=== PATIENT | female | born 1980 | race Caucasian/White ===

== ENCOUNTER 2018-06-08 18:01 | Inpatient (IN) | payer OTHER, MEDICAID ==
[~2018-06-08] VITALS: Ht 165.1 cm; Wt 46.7 kg
[2018-06-08] MEDS ORDERED: ZIPRASIDONE 20 MG INJ IM ONE ×2 (18:19→18:30)
[2018-06-08 18:28] LABS: BASOPHILS # (AUTO) 0.03 x10^3/uL (0-0.1); BASOPHILS % (AUTO) 0 % (0-1); EOSINOPHILS % (AUTO) 0 % (1-7); LYMPHOCYTES # (AUTO) 1.76 x10^3/uL (1-3.4); LYMPHOCYTES % (AUTO) 18 % (22-44); MD NO; MEAN CORPUSCULAR HEMOGLOBIN 29.7 pg (27.0-34.8); MEAN CORPUSCULAR VOLUME 87.5 fL (80-100); MEAN PLATELET VOLUME 13.4 fL (7.4-10.4); MONOCYTES # (AUTO) 0.69 x10^3/uL (0.2-0.8); MONOCYTES % (AUTO) 7 % (2-9); NEUTROPHILS # (AUTO) 7.13 x10^3/uL (1.8-6.8); NEUTROPHILS % (AUTO) 74 % (42-75); PLATELET COUNT 194 x10^3/uL (130-400); RED BLOOD COUNT 5.56 x10^6/uL (3.82-5.3); RED CELL DISTRIBUTION WIDTH 12.7 % (9.6-15.2)
[2018-06-08] MEDS ORDERED: SODIUM CHLORIDE 0.9% 1,000ML IVBOLUS ONE (18:30)
[2018-06-08] MEDS ORDERED: PLEASE ENTER ALLERGIES MC SCH (18:30)
[2018-06-08 18:45] LABS: ALBUMIN 4.4 g/dL (3.4-5.0); ANION GAP 15 mmol/L (5-15); CALCIUM 9.9 mg/dL (8.5-10.1); CHLORIDE 118 mmol/L (98-107)
[2018-06-08 18:47] LABS: SALICYLATE LEVEL < 1.7 mg/dL (2.8-20.0)
[2018-06-08 18:49] LABS: ALANINE AMINOTRANSFERASE 58 U/L (12-78); ALKALINE PHOSPHATASE 93 U/L (45-117); BILIRUBIN,TOTAL 1.2 mg/dL (0.2-1.0); CREATININE 1.22 mg/dL (0.55-1.02); TOTAL PROTEIN 7.5 g/dL (6.4-8.2)
[2018-06-08 18:51] LABS: ACETAMINOPHEN < 2 mcg/mL (10-30)
[2018-06-08 18:54] LABS: FREE T4 (FREE THYROXINE) 1.13 ng/dL (0.76-1.46); THYROID STIMULATING HORMONE 0.837 mIU/L (0.358-3.740)
[2018-06-08] MEDS ORDERED: BISACODYL 10 MG SUPP PR PRN (20:30)
[2018-06-08] MEDS ORDERED: ONDANSETRON ODT 4 MG PO PRN (20:30)
[2018-06-08] MEDS: HEPARIN 5,000 UNITS/ML, 1ML SQ SCH (20:30)
[2018-06-08] MEDS ORDERED: POLYETHYLENE GLYCOL 17 GM PACKET PO PRN (20:30)
[2018-06-08] MEDS ORDERED: ACETAMINOPHEN 325 MG TABLET PO PRN (20:30)
[2018-06-08] MEDS: SODIUM CHLORIDE 0.9% 1,000 ML IV SCH (22:13)
[2018-06-08 22:24] VITALS: BP 107/67
[2018-06-09 00:23] VITALS: BP 107/68
[2018-06-09 03:14] LABS: CULTURE INDICATED? YES; MICROSCOPIC INDICATED
[2018-06-09] MEDS: HEPARIN 5,000 UNITS/ML, 1ML SQ SCH ×3 (05:18→21:17)
[2018-06-09 06:29] LABS: BASOPHILS # (AUTO) 0.05 x10^3/uL (0-0.1); BASOPHILS % (AUTO) 1 % (0-1); EOSINOPHILS # (AUTO) 0.04 x10^3/uL (0-0.4); EOSINOPHILS % (AUTO) 1 % (1-7); LYMPHOCYTES # (AUTO) 2.22 x10^3/uL (1-3.4); LYMPHOCYTES % (AUTO) 28 % (22-44); MD NO; MEAN CORPUSCULAR HEMOGLOBIN 29.5 pg (27.0-34.8); MEAN CORPUSCULAR HGB CONC 33.4 g/dL (32.4-35.8); MEAN CORPUSCULAR VOLUME 88.3 fL (80-100); MEAN PLATELET VOLUME 13.3 fL (7.4-10.4); MONOCYTES # (AUTO) 0.64 x10^3/uL (0.2-0.8); MONOCYTES % (AUTO) 8 % (2-9); NEUTROPHILS # (AUTO) 5.09 x10^3/uL (1.8-6.8); NEUTROPHILS % (AUTO) 63 % (42-75); PLATELET COUNT 159 x10^3/uL (130-400); RED BLOOD COUNT 4.58 x10^6/uL (3.82-5.3); RED CELL DISTRIBUTION WIDTH 13.3 % (9.6-15.2)
[2018-06-09 06:34] LABS: ALANINE AMINOTRANSFERASE 50 U/L (12-78); ALBUMIN 3.5 g/dL (3.4-5.0); ANION GAP 7 mmol/L (5-15); CALCIUM 8.5 mg/dL (8.5-10.1); CHLORIDE 121 mmol/L (98-107); CREATININE 0.81 mg/dL (0.55-1.02)
[2018-06-09 06:36] LABS: ALKALINE PHOSPHATASE 74 U/L (45-117); TOTAL PROTEIN 5.9 g/dL (6.4-8.2)
[2018-06-09 08:36] VITALS: BP 144/70
[2018-06-09] MEDS: SODIUM CHLORIDE 0.9% 1,000 ML IV SCH (09:00)
[2018-06-09] MEDS: SENNA/DOCUSATE TABLET PO SCH (09:00)
[2018-06-09] MEDS: POTASSIUM CHLORIDE 20 MEQ in SODIUM CHLORIDE 0.45% 1,000 ML IV SCH (10:05)
[2018-06-09 14:44] VITALS: BP 123/75
[2018-06-09] MEDS: LORazepam 2 MG/ML, 1ML IVPush PRN (16:22)
[2018-06-09] MEDS ORDERED: ZIPRASIDONE 20MG CAPSULE PO PRN (16:30)
[2018-06-09] MEDS ORDERED: RISPERIDONE 0.5 MG TABLET ONE (20:50)
[2018-06-09] MEDS: RISPERIDONE 1 MG TABLET PO SCH (21:18)
[2018-06-09 21:35] VITALS: BP 110/72
[2018-06-10] MEDS: POTASSIUM CHLORIDE 20 MEQ in SODIUM CHLORIDE 0.45% 1,000 ML IV SCH (00:10)
[2018-06-10 01:58] VITALS: BP 120/75
[2018-06-10] MEDS: HEPARIN 5,000 UNITS/ML, 1ML SQ SCH ×4 (03:09→21:24)
[2018-06-10] MEDS: LORazepam 2 MG/ML, 1ML IVPush PRN (03:51)
[2018-06-10 08:19] VITALS: BP 118/85
[2018-06-10 08:29] LABS: ALANINE AMINOTRANSFERASE 65 U/L (12-78); ALBUMIN 3.1 g/dL (3.4-5.0); ANION GAP 7 mmol/L (5-15); CALCIUM 8.5 mg/dL (8.5-10.1); CHLORIDE 112 mmol/L (98-107); CREATININE 0.59 mg/dL (0.55-1.02)
[2018-06-10 08:32] LABS: ALKALINE PHOSPHATASE 95 U/L (45-117); BILIRUBIN,TOTAL 0.4 mg/dL (0.2-1.0); TOTAL PROTEIN 5.2 g/dL (6.4-8.2)
[2018-06-10] MEDS: SENNA/DOCUSATE TABLET PO SCH (09:00)
[2018-06-10] MEDS ORDERED: POTASSIUM CHLORIDE 20 MEQ TAB.ER.PRT PO ONE (09:30)
[2018-06-10] MEDS ORDERED: RISPERIDONE 0.5 MG TABLET ONE ×3 (09:39→21:17)
[2018-06-10] MEDS: RISPERIDONE 1 MG TABLET PO SCH ×2 (11:46→21:00)
[2018-06-10 13:18] VITALS: BP 110/75
[2018-06-10] MEDS ORDERED: ZIPRASIDONE 20 MG INJ IM ONE (20:00)
[2018-06-10 22:17] VITALS: BP 118/84
[2018-06-11 03:11] VITALS: BP 106/62
[2018-06-11] MEDS: HEPARIN 5,000 UNITS/ML, 1ML SQ SCH (04:30)
[2018-06-11 06:04] LABS: ANION GAP 6 mmol/L (5-15); CALCIUM 8.6 mg/dL (8.5-10.1); CHLORIDE 112 mmol/L (98-107)
[2018-06-11 06:07] LABS: CREATININE 0.62 mg/dL (0.55-1.02)
[2018-06-11] MEDS ORDERED: RISP1TAB45 PO (06:32)
[2018-06-11 06:50] VITALS: BP 125/72
[2018-06-11] MEDS ORDERED: RISPERIDONE 0.5 MG TABLET ONE (08:43)
[2018-06-11] MEDS: RISPERIDONE 1 MG TABLET PO SCH (08:49)
[2018-06-11] MEDS: SENNA/DOCUSATE TABLET PO SCH (09:00)
[2018-06-11] MEDS ORDERED: POTASSIUM CHLORIDE 20 MEQ TAB.ER.PRT PO SCH (17:00)
== END 2018-06-11 10:08 | disposition home or self-care (01) | DRG 683 ==
LOC: ED 18:35 → EDIP 19:18 → 4NOR 20:25
PROVIDERS: ADMIT Internal Medicine; ATTEND Internal Medicine
DX: N17.9 Acute kidney failure, unspecified (principal); E44.0 Moderate protein-calorie malnutrition; E87.0 Hyperosmolality and hypernatremia; R17 Unspecified jaundice; Z68.1 Body mass index [BMI] 19.9 or less, adult; D75.1 Secondary polycythemia; E86.0 Dehydration; R62.7 Adult failure to thrive; E87.6 Hypokalemia; F20.9 Schizophrenia, unspecified; Z78.1 Physical restraint status
CPT/HCPCS: 36415; 71045; 80048; 80053; 80307; 80329; 81001; 82140; 82962; 84295; 84439; 84443; 84703; 85025; 87086; 93005; G0378; J1644; J3480; J3486; G0480; J2060; J7030

== ENCOUNTER 2019-03-11 14:51 | Inpatient (IN) | payer MEDICAID, OTHER ==
[~2019-03-11] VITALS: Ht 167.6 cm; Wt 44.4 kg
[~2019-03-11 14:51] MED LIST: RISP1TAB45 PO
--- NOTE | 2019-03-11 15:10 | NUR ---
MD JEREZ IN ROOM FOR EVAL. [facility] OFFICERS SPOKE WITH [facility] MEDICAL STAFF AND MD JEREZ. APPARENTLY THE PATIENT HAS A HISTORY OF ARRESTS AND MENTAL ILLNESS. [facility] REPORTS THAT SHE NORMALLY TAKES ZYPREXA BUT HAS NOT BEEN MEDICATED WHILE AT [facility]. PATIENT HAS BEEN IN [facility] BEFORE BUT HAS NOT PREVIOUSLY REFUSED TO EAT AND DRINK. TODAY, WHEN ASKED BY MD WHY PATIENT IS NOT EATING AND DRINKING SHE SAYS "I AM EATING AND DRINKING". SHE IS ALSO AKING ABOUT A BAG OF BELONGINGS. THE OFFICERS HAVE BEEN REASSURING HER THAT SHE WILL GET HER BELONGINGS BACK AFTER SHE IS DISCHARGED FROM [facility]. PATIENT REFUSES ORAL AND AXIALLARY TEMP AT THIS TIME
[2019-03-11] MEDS ORDERED: HALOPERIDOL 5 MG/ML ONE (15:18)
[2019-03-11] MEDS ORDERED: HALOPERIDOL 5 MG/ML IM ONE (15:30)
--- NOTE | 2019-03-11 15:30 | NUR ---
[facility] MEDICATED. NOT COOPERATIVE BUT NOT COMBATIVE. IM MEDICATION ADMINISTERED WITH HELP OF CUSTODIAL OFFICERS. PATIENT ASKED, "WHY ARE YOU GIVING ME POSION?"
--- NOTE | 2019-03-11 16:08 | NUR ---
PT SLEEPING ON GURNEY AT THIS TIME. VSS. NADN. [place] AT BEDSIDE.
[2019-03-11 16:33] LABS: ALBUMIN 4.4 g/dL (3.4-5.0); ANION GAP 9 mmol/L (5-15); CALCIUM 9.3 mg/dL (8.5-10.1); CHLORIDE 113 mmol/L (98-107)
[2019-03-11 16:39] LABS: ALANINE AMINOTRANSFERASE 94 U/L (12-78); ALKALINE PHOSPHATASE 74 U/L (45-117); BILIRUBIN,TOTAL 1.6 mg/dL (0.2-1.0); CREATININE 1.28 mg/dL (0.55-1.02); TOTAL PROTEIN 7.1 g/dL (6.4-8.2)
--- NOTE | 2019-03-11 16:45 | NUR ---
PT MINI-CATH'D AT THIS TIME. PT STATING "NO, NO" THROUGHOUT PROCEDURE. HOWEVER, PT TOLERATED AND WAS ABLE TO COOPERATE WITH TAKING AN ORAL TEMPERATURE WELL. RAJESH. GUARDS BACK AT BEDSIDE. PT RESTING ON [facility].
[2019-03-11] MEDS ORDERED: SODIUM CHLORIDE 0.9% 1,000ML IVBOLUS ONE (17:00)
[2019-03-11 17:10] LABS: MICROSCOPIC NOT IND
[2019-03-11] MEDS ORDERED: NS + 20MEQ KCL 1,000 ML IV SCH (17:14)
[2019-03-11 17:17] LABS: CULTURE INDICATED? NO
[2019-03-11 17:21] LABS: MD YES; MEAN CORPUSCULAR HEMOGLOBIN 30.6 pg (27.0-34.8); MEAN CORPUSCULAR HGB CONC 32.6 g/dL (32.4-35.8); MEAN CORPUSCULAR VOLUME 93.8 fL (80-100); MEAN PLATELET VOLUME 11.6 fL (7.4-10.4); PLATELET COUNT 155 x10^3/uL (130-400); RED BLOOD COUNT 4.53 x10^6/uL (3.82-5.3); RED CELL DISTRIBUTION WIDTH 14.3 % (9.6-15.2)
[2019-03-11 17:23] LABS: LYMPHS% (MANUAL) 26 % (22-44); MONOS#(MANUAL) 0.52 x10^3/uL (0.3-2.7); MONOS% (MANUAL) 5 % (2-9); REACTIVE LYMPHS % (MANUAL) 1 % (0-0); SEG#(MANUAL) 7.07 x10^3/uL (1.8-6.8); SEGS% (MANUAL) 68 % (42-75)
[2019-03-11 17:24] LABS: <RBC MORPHOLOGY> NORMAL
[2019-03-11 17:25] LABS: <PLATELET ESTIMATE> ADEQUATE; LARGE PLATELETS 1+
[2019-03-11] MEDS ORDERED: hydrALAzine 20 MG/ML, 1ML IVPush PRN (17:30)
[2019-03-11] MEDS ORDERED: ONDANSETRON 2MG/ML, 2ML IVPush PRN (17:30)
--- NOTE | 2019-03-11 17:32 | NUR ---
PIV STARTED AT THIS TIME. PT RESTING IN BED. SHOUTING "NO, DON'T DO THAT. GIVE ME THE RESPIRADOL AND JUICY JUICE." GUARDS AT BEDSIDE.
--- NOTE | 2019-03-11 17:47 | NUR ---
REPORT GIVEN TO OLIVIA PIMENTEL ON MEDICAL.
[2019-03-11 19:24] LABS: ANION GAP 8 mmol/L (5-15); CALCIUM 8.3 mg/dL (8.5-10.1); CHLORIDE 118 mmol/L (98-107); CREATININE 1.01 mg/dL (0.55-1.02)
[2019-03-11 19:30] VITALS: BP 164/115
[2019-03-11 20:40] VITALS: BP 116/75
[2019-03-11 21:14] LABS: AMPHETAMINE SCREEN, URINE Negative (Negative); BARBITURATE SCREEN, URINE Negative (Negative); BENZODIAZEPINE SCREEN, URINE Negative (Negative); CANNABINOID SCREEN, URINE Negative (Negative); COCAINE SCREEN, URINE Negative (Negative); METHADONE SCREEN, URINE Negative (Negative); OPIATE SCREEN, URINE Negative (Negative)
[2019-03-11] MEDS: HALOPERIDOL 5 MG/ML IV PRN (22:36)
[2019-03-11 23:14] VITALS: BP 108/68
[2019-03-11 23:40] LABS: ANION GAP 8 mmol/L (5-15); CALCIUM 8.5 mg/dL (8.5-10.1); CHLORIDE 119 mmol/L (98-107); CREATININE 0.92 mg/dL (0.55-1.02)
[2019-03-12 02:46] VITALS: BP 115/76
[2019-03-12 03:02] LABS: BASOPHILS # (AUTO) 0.07 x10^3/uL (0-0.1); BASOPHILS % (AUTO) 1 % (0-1); EOSINOPHILS # (AUTO) 0.03 x10^3/uL (0-0.4); EOSINOPHILS % (AUTO) 0 % (1-7); LYMPHOCYTES # (AUTO) 1.46 x10^3/uL (1-3.4); LYMPHOCYTES % (AUTO) 19 % (22-44); MD NO; MEAN CORPUSCULAR HGB CONC 32.5 g/dL (32.4-35.8); MEAN CORPUSCULAR VOLUME 92.3 fL (80-100); MONOCYTES # (AUTO) 0.58 x10^3/uL (0.2-0.8); MONOCYTES % (AUTO) 7 % (2-9); NEUTROPHILS # (AUTO) 5.76 x10^3/uL (1.8-6.8); NEUTROPHILS % (AUTO) 73 % (42-75); PLATELET COUNT 131 x10^3/uL (130-400); RED BLOOD COUNT 3.93 x10^6/uL (3.82-5.3); RED CELL DISTRIBUTION WIDTH 14.7 % (9.6-15.2)
[2019-03-12 03:14] LABS: ANION GAP 6 mmol/L (5-15); CALCIUM 8.4 mg/dL (8.5-10.1); CHLORIDE 121 mmol/L (98-107); CREATININE 0.79 mg/dL (0.55-1.02)
[2019-03-12] MEDS: HALOPERIDOL 5 MG/ML IV PRN ×2 (06:22→22:22)
[2019-03-12 07:12] LABS: ANION GAP 6 mmol/L (5-15); CALCIUM 8.2 mg/dL (8.5-10.1); CHLORIDE 121 mmol/L (98-107); CREATININE 0.76 mg/dL (0.55-1.02)
[2019-03-12 07:47] VITALS: BP 125/81
[2019-03-12] MEDS ORDERED: DEXTROSE 5% 1,000 ML IV SCH (08:00)
[2019-03-12 11:25] LABS: ANION GAP 7 mmol/L (5-15); CALCIUM 8.2 mg/dL (8.5-10.1); CHLORIDE 120 mmol/L (98-107); CREATININE 0.75 mg/dL (0.55-1.02)
[2019-03-12 15:09] LABS: ANION GAP 5 mmol/L (5-15); CALCIUM 8.2 mg/dL (8.5-10.1); CHLORIDE 118 mmol/L (98-107)
[2019-03-12 15:28] VITALS: BP 138/91
[2019-03-12] MEDS: D5%-0.45NACL+KCL 40MEQ 1,000 ML IV SCH (17:31)
[2019-03-12 19:22] LABS: ANION GAP 6 mmol/L (5-15); CALCIUM 8.1 mg/dL (8.5-10.1); CHLORIDE 116 mmol/L (98-107); CREATININE 0.62 mg/dL (0.55-1.02)
[2019-03-12] MEDS: OLANZAPINE ODT 10MG PO SCH (20:46)
[2019-03-12 21:44] VITALS: BP 137/74
[2019-03-12 23:51] LABS: ANION GAP 4 mmol/L (5-15); CALCIUM 8.4 mg/dL (8.5-10.1); CHLORIDE 116 mmol/L (98-107); CREATININE 0.75 mg/dL (0.55-1.02)
[2019-03-13 03:55] VITALS: BP 109/69
[2019-03-13 05:49] LABS: BASOPHILS # (AUTO) 0.02 x10^3/uL (0-0.1); BASOPHILS % (AUTO) 0 % (0-1); EOSINOPHILS # (AUTO) 0.18 x10^3/uL (0-0.4); EOSINOPHILS % (AUTO) 2 % (1-7); LYMPHOCYTES % (AUTO) 23 % (22-44); MD NO; MEAN CORPUSCULAR HEMOGLOBIN 30.1 pg (27.0-34.8); MEAN CORPUSCULAR HGB CONC 32.4 g/dL (32.4-35.8); MEAN CORPUSCULAR VOLUME 92.8 fL (80-100); MEAN PLATELET VOLUME 11.2 fL (7.4-10.4); MONOCYTES # (AUTO) 0.74 x10^3/uL (0.2-0.8); MONOCYTES % (AUTO) 9 % (2-9); NEUTROPHILS # (AUTO) 5.61 x10^3/uL (1.8-6.8); NEUTROPHILS % (AUTO) 66 % (42-75); PLATELET COUNT 118 x10^3/uL (130-400); RED BLOOD COUNT 4.22 x10^6/uL (3.82-5.3); RED CELL DISTRIBUTION WIDTH 14.3 % (9.6-15.2)
[2019-03-13 05:58] LABS: ALANINE AMINOTRANSFERASE 66 U/L (12-78); ALBUMIN 3.4 g/dL (3.4-5.0); ANION GAP 6 mmol/L (5-15); CALCIUM 8.6 mg/dL (8.5-10.1); CHLORIDE 115 mmol/L (98-107); CREATININE 0.68 mg/dL (0.55-1.02)
[2019-03-13 06:00] LABS: ALKALINE PHOSPHATASE 72 U/L (45-117); BILIRUBIN,TOTAL 0.8 mg/dL (0.2-1.0); TOTAL PROTEIN 5.8 g/dL (6.4-8.2)
[2019-03-13] MEDS: D5%-0.45NACL+KCL 40MEQ 1,000 ML IV SCH ×2 (06:32→21:50)
[2019-03-13 07:20] VITALS: BP 115/82
[2019-03-13] MEDS: MEGESTROL ORAL.SUSP 40 MG/ML PO SCH (08:52)
[2019-03-13] MEDS: OLANZAPINE ODT 10MG PO SCH ×2 (08:52→21:50)
[2019-03-13] MEDS ORDERED: DEXTROSE 5% 1,000 ML IV SCH (10:00)
[2019-03-13 12:53] VITALS: BP 130/86
[2019-03-13 18:43] LABS: ANION GAP 6 mmol/L (5-15); CALCIUM 8.5 mg/dL (8.5-10.1); CHLORIDE 111 mmol/L (98-107)
[2019-03-13 18:44] LABS: CREATININE 0.65 mg/dL (0.55-1.02)
[2019-03-13 19:19] VITALS: BP 118/69
[2019-03-14] MEDS: HALOPERIDOL 5 MG/ML IV PRN ×2 (03:59→15:50)
[2019-03-14] MEDS: D5%-0.45NACL+KCL 40MEQ 1,000 ML IV SCH (05:02)
[2019-03-14 08:45] VITALS: BP 127/82
[2019-03-14] MEDS: MEGESTROL ORAL.SUSP 40 MG/ML PO SCH (09:02)
[2019-03-14] MEDS: OLANZAPINE ODT 10MG PO SCH ×2 (09:02→21:40)
[2019-03-14 09:08] LABS: BASOPHILS # (AUTO) 0.01 x10^3/uL (0-0.1); BASOPHILS % (AUTO) 0 % (0-1); EOSINOPHILS # (AUTO) 0.26 x10^3/uL (0-0.4); EOSINOPHILS % (AUTO) 3 % (1-7); LYMPHOCYTES # (AUTO) 1.77 x10^3/uL (1-3.4); LYMPHOCYTES % (AUTO) 22 % (22-44); MD NO; MEAN CORPUSCULAR HEMOGLOBIN 30.2 pg (27.0-34.8); MEAN CORPUSCULAR HGB CONC 32.5 g/dL (32.4-35.8); MEAN CORPUSCULAR VOLUME 92.8 fL (80-100); MEAN PLATELET VOLUME 11.5 fL (7.4-10.4); MONOCYTES # (AUTO) 0.68 x10^3/uL (0.2-0.8); MONOCYTES % (AUTO) 8 % (2-9); NEUTROPHILS # (AUTO) 5.39 x10^3/uL (1.8-6.8); NEUTROPHILS % (AUTO) 66 % (42-75); PLATELET COUNT 120 x10^3/uL (130-400); RED BLOOD COUNT 4.91 x10^6/uL (3.82-5.3); RED CELL DISTRIBUTION WIDTH 14.3 % (9.6-15.2)
[2019-03-14 09:18] LABS: ALANINE AMINOTRANSFERASE 57 U/L (12-78); ALBUMIN 3.4 g/dL (3.4-5.0); ANION GAP 6 mmol/L (5-15); CALCIUM 8.6 mg/dL (8.5-10.1); CHLORIDE 114 mmol/L (98-107); CREATININE 0.58 mg/dL (0.55-1.02)
[2019-03-14 09:20] LABS: ALKALINE PHOSPHATASE 84 U/L (45-117); BILIRUBIN,TOTAL 0.5 mg/dL (0.2-1.0); TOTAL PROTEIN 6.2 g/dL (6.4-8.2)
[2019-03-14] MEDS ORDERED: POTASSIUM PHOSPHATE 44 MEQ in SODIUM CHLORIDE 0.9% 500 ML IV ONE (11:00)
[2019-03-14] MEDS: DEXTROSE 5% 1,000 ML IV SCH ×2 (12:30→21:33)
[2019-03-14 14:20] VITALS: BP 108/76
[2019-03-14 15:52] LABS: ANION GAP 5 mmol/L (5-15); CALCIUM 8.7 mg/dL (8.5-10.1); CHLORIDE 114 mmol/L (98-107); CREATININE 0.66 mg/dL (0.55-1.02)
[2019-03-14] MEDS ORDERED: HALOPERIDOL 5 MG TABLET PO PRN (19:00)
[2019-03-14] MEDS ORDERED: HALOPERIDOL 5 MG/ML IM PRN (19:00)
[2019-03-15 00:18] LABS: ANION GAP 6 mmol/L (5-15); CALCIUM 8.5 mg/dL (8.5-10.1); CHLORIDE 112 mmol/L (98-107); CREATININE 0.64 mg/dL (0.55-1.02)
[2019-03-15 06:23] LABS: ANION GAP 7 mmol/L (5-15); CALCIUM 8.6 mg/dL (8.5-10.1); CHLORIDE 114 mmol/L (98-107)
[2019-03-15 06:25] LABS: CREATININE 0.57 mg/dL (0.55-1.02)
[2019-03-15 07:00] VITALS: BP 123/89
[2019-03-15] MEDS: DEXTROSE 5% 1,000 ML IV SCH (09:29)
[2019-03-15] MEDS: MEGESTROL ORAL.SUSP 40 MG/ML PO SCH (09:29)
[2019-03-15] MEDS: OLANZAPINE ODT 10MG PO SCH (09:29)
[2019-03-15 13:19] VITALS: BP 127/79
[2019-03-15] MEDS ORDERED: MEGE400O2 PO (13:42)
[2019-03-15] MEDS ORDERED: HALO5TAB5 PO (13:42)
[2019-03-15] MEDS ORDERED: OLAN10TA7 PO (13:42)
== END 2019-03-15 16:07 | DRG 682 ==
LOC: ED 16:59 → EDIP 17:14 → 3NE 17:38 → 4WST 21:39
PROVIDERS: ADMIT Hospitalist; ATTEND Hospitalist
DX: N17.0 Acute kidney failure with tubular necrosis (principal); E43 Unspecified severe protein-calorie malnutrition; E87.0 Hyperosmolality and hypernatremia; Z68.1 Body mass index [BMI] 19.9 or less, adult; E83.39 Other disorders of phosphorus metabolism; E86.0 Dehydration; F25.9 Schizoaffective disorder, unspecified; R62.7 Adult failure to thrive; R79.89 Other specified abnormal findings of blood chemistry; R33.9 Retention of urine, unspecified
CPT/HCPCS: 36415; 70450; 74018; 80048; 80053; 80307; 81003; 83735; 84100; 84443; 84703; 85025; 93005; 96372; 99285; G0378; J3480; J7070; J1630; J7030; J7040